=== PATIENT | male | born 1955 | race Caucasian/White ===

== ENCOUNTER 2016-09-30 20:36 | Emergency (ER) | payer OTHER ==
--- NOTE | 2016-09-30 21:32 | RAD ---
CHEST - 2 VIEWS COMPARISON: Chest 2 views, 10/17/2015 HISTORY: Cough, sore throat, and hemoptysis for 2 days. FINDINGS: Views: Frontal and lateral chest Lungs: Normal Heart and vessels: Normal Trachea and bronchi: Normal Mediastinum and nneka: Normal Costophrenic sulci: Normal Chest wall and bones: Normal. Upper abdomen: Normal. IMPRESSION: Negative 2 view chest.
== END 2016-10-01 00:23 | disposition home or self-care (01) ==
LOC: ED 20:36
DX: J44.9 Chronic obstructive pulmonary disease, unspecified (principal); I10 Essential (primary) hypertension; R09.81 Nasal congestion; B34.9 Viral infection, unspecified; Z87.891 Personal history of nicotine dependence